=== PATIENT | female | born 1940 | race Caucasian/White ===

== ENCOUNTER → 2021-11-11 | Day surgery (SDC) | payer MEDICARE, OTHER ==
[~2021-11-11] VITALS: Ht 167.6 cm; Wt 88.9 kg
[~2021-11-11] MED LIST: AMLODIPINE BESY10 MG PO; ELIQUIS5 MG PO; EUTHYROX88 MCG PO; HCTZ25 MG PO; METOPROLOL SUC200 MG PO
[2021-11-11 07:48] LABS: HCT 45.8 % (37.0-47.0); HGB 15.4 g/dl (12.5-16.0); MCH 31.3 pg (25.0-31.0); MCHC 33.6 g/dL (32.0-36.0); MCV 93.1 fL (78.0-100.0); MPV 10.4 fL (6.0-9.5); RBC 4.92 M/uL (4.20-5.40); RDW 13.2 % (11.5-14.0); WBC 6.8 K/uL (4.0-10.5)
[2021-11-11 08:12] LABS: CREATININE 0.91 mg/dL (0.51-0.95); POTASSIUM 4.3 mmol/L (3.5-5.1)
== END | disposition home or self-care (01) ==
LOC: FAS 07:14
PROVIDERS: Surgery
DX: R19.5 Other fecal abnormalities (principal); D12.8 Benign neoplasm of rectum; I48.91 Unspecified atrial fibrillation; I10 Essential (primary) hypertension; E03.9 Hypothyroidism, unspecified; Z86.010 Personal history of colon polyps; Z79.01 Long term (current) use of anticoagulants
CPT/HCPCS: 36415; 80048; J7120